=== PATIENT | female | born 1975 | race Caucasian/White ===

== ENCOUNTER 2020-07-12 20:33 | Emergency (ER) | payer OTHER ==
[2020-07-12 21:23] LABS: HEMOGLOBIN 11.6 gm/dl (12.3-15.3); RED BLOOD COUNT 3.83 M/UL (4.00-5.10)
[2020-07-12 21:46] LABS: BUN/CREATININE RATIO 16 (0-10)
[2020-07-12] MEDS ORDERED: LODINE CAP 300300 MG PO (22:43)
[2020-07-12] MEDS ORDERED: BENTYL 20MG TAB20 MG PO (22:43)
[2020-07-12] MEDS ORDERED: ZOFRAN ODT 4 MG4 MG PO (22:43)
== END 2020-07-12 22:53 | disposition home or self-care (01) ==
LOC: ER1 20:33
PROVIDERS: Physician Assistant
DX: R10.84 Generalized abdominal pain (principal); R10.11 Right upper quadrant pain; R10.31 Right lower quadrant pain; Z88.0 Allergy status to penicillin; Z88.2 Allergy status to sulfonamides
CPT/HCPCS: 80053; 81001; 82550; 82553; 83605; 83690; 84484; 84703; 85025; 93005; 96374; 96375; 99284; J1885; J2270; J2405; Q9967

== ENCOUNTER 2020-07-16 10:27 | Emergency (ER) | payer OTHER ==
[~2020-07-16 10:27] MED LIST: BENTYL 20MG TAB20 MG PO; LODINE CAP 300300 MG PO; ZOFRAN ODT 4 MG4 MG PO
[2020-07-16 11:44] LABS: HEMOGLOBIN 11.3 gm/dl (12.3-15.3); RED BLOOD COUNT 3.75 M/UL (4.00-5.10); WHITE BLOOD COUNT 7.6 K/UL (4.5-11.0)
[2020-07-16 12:02] LABS: BUN/CREATININE RATIO 13 (0-10)
== END 2020-07-16 20:55 | disposition short-term general hospital (02) ==
LOC: ER1 10:27
PROVIDERS: Physician Assistant
DX: K80.70 Calculus of gallbladder and bile duct without cholecystitis without obstruction (principal); I10 Essential (primary) hypertension; Z20.822 Contact with and (suspected) exposure to COVID-19; Z88.0 Allergy status to penicillin; Z88.2 Allergy status to sulfonamides
CPT/HCPCS: 76705; 80053; 81001; 84703; 85025; 96374; 96375; 96376; 99285; J2270; J2405; U0002

== ENCOUNTER 2021-11-24 18:39 | Emergency (ER) | payer OTHER ==
[2021-11-24] MEDS ORDERED: MORGIDOX100 MG PO (22:38)
[2021-11-27 17:13] LABS: CHLAMYDIA TRACHOMATIS, NAA Positive (Negative); NEISSERIA GONORRHOEAE, NAA Positive (Negative)
== END 2021-11-24 23:03 | disposition home or self-care (01) ==
LOC: ER1 18:39
PROVIDERS: Emergency Medicine
DX: N75.1 Abscess of Bartholin's gland (principal); Z88.0 Allergy status to penicillin; Z88.2 Allergy status to sulfonamides
CPT/HCPCS: 56420; 81001; 84703; 87210; 96372; 99283; J0696